=== PATIENT | female | born 1990 | race Asian ===

== ENCOUNTER → 2016-07-11 | Outpatient (CLI) | payer OTHER ==
--- NOTE | 2016-07-11 16:48 | DX ---
Right Foot, 3 Views, at 3:50 p.m. Clinical History: 26-year-old female who fell down 4 stairs today, and complains of pain along the do rsal right 4th and 5th metatarsal area. ICD-10 Diagnostic Code: M79.671. Comparison Study: None. Findings: Bone mineralization is preserved. An ankle bracelet is present. On the lateral view, there is an equivocal avulsion fragment over the dorsal tarsometatarsal anatomy. There is no Lisfranc joint malalignment. The remainder of the foot is unremarkable. Impression: Equivocal avulsion injury over the dorsal midfoot.
== END ==
LOC: BRMIMAGING 15:45
PROVIDERS: ATTEND Physician Assistant
DX: M79.671 Pain in right foot (principal)
CPT/HCPCS: 73630-PO

== ENCOUNTER 2017-03-08 12:11 | Day surgery (SDC) | payer OTHER ==
[2017-03-08] MEDS ORDERED: LORazepam 2 MG/ML INJ IVP ONE (12:38)
[2017-03-08] MEDS ORDERED: GLUCAGON,HUMAN RECOMBINANT 1 MG VIAL IVP ONE ×2 (12:39→12:46)
[2017-03-08] MEDS ORDERED: GLUCAGON,HUMAN RECOMBINANT 1 MG VIAL ONE (12:44)
--- NOTE | 2017-03-08 13:36 | EDPHY ---
General Narrative: CHIEF COMPLAINT: Choking, food stuck in throat HISTORY OF PRESENT ILLNESS: Patient complains of choking on cantaloupe 1 hour prior to arrival. She was eating cantaloupe a workup when she felt a small piece got lodged in the esophagus. She coughed thought that it moved on. She ate a 2nd piece and felt the lodge in what she thinks is her esophagus. She became very anxious about this. She reports drooling difficulty breathing. She had some pain in the neck and upper chest from this. No abdominal pain. No lightheadedness, dizziness or syncope. Her coworkers with her and described her as talking anxious scared. She arrives by EMS with IV in place but no intervention otherwise. No previous history of esophageal stricture, achalasia or other esophageal abnormality. No other associated complaints or modifying factors. REVIEW OF SYSTEMS: Ten systems reviewed and are negative unless otherwise noted in the HPI PAST MEDICAL HISTORY: None PAST SURGICAL HISTORY: None SOCIAL HISTORY: Nonsmoker. Lives here locally. FAMILY HISTORY: Noncontributory EXAMINATION General Appearance: Alert, no distress, anxious Head: normocephalic, atraumatic Eyes: Pupils equal and round, no conjunctival pallor or injection ENT, Mouth: Mucous membranes moist, mild drooling. No stridor. Neck: Normal inspection, supple, non-tender Respiratory: Lungs are clear to auscultation. No retractions or distress. Cardiovascular: Regular rate and rhythm. No murmur Gastrointestinal: Abdomen is soft and nontender Back: non-tender, no bony abnormalities Neurological: GCS 15 A&O, nonfocal, normal gait Skin: Warm and dry, no rash Extremities: Nontender, no pedal edema Psychiatric: Mood and affect normal DIFFERENTIAL DIAGNOSES: Including but not limited to Esophageal foreign body, tracheal foreign body, aspiration, esophageal stricture , Schatzki ring, achalasia MDM: 12:30 p.m. Likely esophageal foreign body containing cantaloupe. She does have examination consistent with this but no stridor. Her airway is widely patent and without difficulty. She is not hypoxic or in any acute distress. We are administering Ativan and glucagon. I will consult GI for assistance. 1:10 p.m. Case discussed with GI physician Dr. Villarreal. He informed me that he would be happy to see the patient. He is about to start an endoscopy and she will be next on the schedule. 1:20 p.m. I have re-evaluated the patient. She is feeling much better. She is talking more clearly at this time. 1:30 p.m. Patient is currently being taken to endoscopy suite at this time. She remains awake and alert. Her airway is patent. She is not stridorous. She continues to improve. Further discharge instructions per Gastroenterology postprocedure. - Diagnostics Imaging Results: Imaging Impressions Soft Tissue Neck X-Ray 03/08/17 12:38 Impression: No definite radiopaque foreign object identified. Findings discussed with Gage Shrestha 03/08/2017 at 1302 hours. - Objective Vital Signs: Initial Vital Signs Temperature (C) 99.0 F 03/08/17 12:20 Heart Rate 89 03/08/17 12:20 Respiratory Rate 20 03/08/17 12:20 Blood Pressure 122/80 H 03/08/17 12:20 O2 Sat (%) 99 03/08/17 12:20 O2 Delivery Mode Simple Mask O2 (L/minute) 6 Allergies/Adverse Reactions: No Known Allergies Allergy (Unverified 03/08/17 12:48) Medications Given: Discontinued Medications Glucagon (Glucagen) 1 mg IVP EDNOW ONE Stop: 03/08/17 12:47 Last Admin: 03/08/17 12:48 Dose: 1 mg Glucagon (Glucagen) 1 mg IVP EDNOW ONE Stop: 03/08/17 12:40 Last Admin: 03/08/17 13:13 Dose: Not Given Lorazepam (Ativan Injection) 0.5 mg IVP EDNOW ONE Stop: 03/08/17 12:39 Last Admin: 03/08/17 12:40 Dose: 0.5 mg Departure - Departure Disposition: Home, Routine, Self-Care Clinical Impression: Esophageal foreign body Qualifiers: Encounter type: initial encounter Qualified Code(s): T18.108A - Unspecified foreign body in esophagus causing other injury, initial encounter Condition: Good
[2017-03-08] MEDS ORDERED: PROPOFOL/EMULSION 500 MG/50 ML BOTTLE IV ONE (14:02)
--- NOTE | 2017-03-08 14:06 | PDANEPAE ---
ANE History of Present Illness here for EGD ANE Past Medical History - Cardiovascular History Hx Hypertension: No Hx Arrhythmias: No Hx Chest Pain: No Hx Coronary Artery / Peripheral Vascular Disease: No Hx CHF / Valvular Disease: No Hx Palpitations: No - Pulmonary History Hx COPD: No Hx Asthma/Reactive Airway Disease: No Hx Recent Upper Respiratory Infection: No Hx Oxygen in Use at Home: No Hx Sleep Apnea: No - Neurologic History Hx Cerebrovascular Accident: No Hx Seizures: No Hx Dementia: No - Endocrine History Hx Diabetes: No Hypothyroid: No Hyperthyroid: No Obesity: no - Renal History Hx Renal Disorders: No - Liver History Hx Hepatic Disorders: No - Neurological & Psychiatric Hx Hx Neurological and Psychiatric Disorders: No - Cancer History Hx Cancer: No - Congenital Disorder History Hx Congenital Disorders: No ANE Review of Systems Review of systems is: negative Review of Systems: - Exercise capacity Exercise capacity: >=4 METS - Systems Constitutional: Reports: no symptoms EENMT: Reports: no symptoms Cardiac: Reports: no symptoms Respiratory: Reports: no symptoms Gastrointestinal: Reports: other Genitourinary: Reports: no symptoms Muscolosketal: Reports: no symptoms Skin: Reports: no symptoms Neurological: Reports: no symptoms ANE Patient History - Allergies Allergies/Adverse Reactions: No Known Allergies Allergy (Unverified 03/08/17 12:48) - Home Medications Home medications: home medication list seen and reviewed - Anes Hx Anes Hx: no prior problems - Smoking Hx Smoking Status: Never smoked ANE Labs/Vital Signs - Vital Signs Blood Pressure: 122/80 Heart Rate: 89 Respiratory Rate: 20 O2 Sat (%): 99 ANE Physical Exam - Airway Neck exam: FROM Mallampati Score: Class 1 - Pulmonary Pulmonary: no respiratory distress - Cardiovascular Cardiovascular: regular rate and rhythym - ASA Status ASA Status: I ANE Anesthesia Plan Anesthesia Plan: general endotracheal anesthesia
[2017-03-08] MEDS ORDERED: DEXAMETHASONE 4 MG/ML VIAL IVP PRN (14:18)
[2017-03-08] MEDS ORDERED: NALOXONE HCL 0.4 MG/ML INJ IVP PRN (14:18)
[2017-03-08] MEDS ORDERED: ALBUTEROL 3 ML DEYVIAL IH PRN (14:18)
[2017-03-08] MEDS ORDERED: ONDANSETRON 4 MG/2 ML VIAL IVP PRN (14:18)
[2017-03-08] MEDS ORDERED: fentaNYL 100 MCG/2 ML INJ IVP PRN (14:18)
[2017-03-08] MEDS ORDERED: PROMETHAZINE HCL 25 MG/ML INJ IVP PRN (14:18)
--- NOTE | 2017-03-08 14:30 | POSTANESTH ---
Post Anesthetic Evaluation Cardiovascular Status: Normal, Stable Respiratory Status: Normal, Stable Level of Consciousness/Mental Status: Mildly Sleepy, Arousable Pain Control: Adequate, Prn Tx Ordered Nausea/Vomiting Control: Adequate, Prn Tx Ordered Complications Possibly Related to Anesthesia: None Noted
[2017-03-08 14:37] VITALS: PULSE 93; TEMP 99
[2017-03-08 15:02] VITALS: RESP 19
--- NOTE | 2017-03-08 15:22 | GPN ---
[f rep st] PROCEDURE NOTE PROCEDURE PERFORMED: Gastroscopy with dilation. INDICATIONS: The patient is a 26-year-old female with longstanding history of dysphagia mostly to so lids but occasionally liquids who presents to the emergency room with active obstruction. She is not able to manage her saliva at presentation. She states that this happens fairly frequently and somet imes requires food to be vomited back up. She also notices occasionally liquids on their own feel st uck. She denies any heartburn symptoms. Is on no medications. Endoscopy is being performed to eval uate and treat. PROCEDURE: After proper consent was obtained, the patient was placed in the left lateral decubitus p osition, received IV general anesthesia. Video gastroscope was introduced through the mouth and into the esophagus. The esophagus was free of any active impaction. No obvious stricture was seen. Stomach was entered and a bolus of food was noted consistent with the cantaloupe she had recently eat en and felt that had been impacted. Otherwise, the stomach appeared normal. Duodenum appeared normal. A Savary wire was placed and a 60-Greek Savary dilator was placed down the esophagus and removed. The gastroscope was replaced and no dilation effect was noted. At this point, instrument was removed. Patient tolerated the procedure well, was returned to the rec overy room in stable condition. IMPRESSION: Recurrent dysphagia, this is mostly solids, but occasionally liquids with no stricture n oted. It is possible this patient has a functional issue such as esophageal spasming. RECOMMENDATIONS: If the patient's symptoms persist after this dilation, I will ask her to come in fo r a formal consultation. She may require trial of acid suppressants or a manometry study. /[id number]/MODL
[2017-03-08 15:41] VITALS: BP 105/70; O2SAT 100
--- NOTE | 2017-03-08 18:54 | POSTOPPROG ---
Post Op Note Date of Operation: 03/08/17 Surgeon: Marquis Villarreal Anesthesia: IV Sedation Pre-op Diagnosis: dysphagia Post-op Diagnosis: same Indication: same Procedure: egd/savary dilation Findings: no stricture Inf/Abcess present in the surg proc area at time of surgery?: No
== END 2017-03-08 15:20 | disposition home or self-care (01) ==
LOC: EDUNIT# → FSGY 13:37
PROVIDERS: ATTEND Internal Medicine Gastroenterology
DX: R13.14 Dysphagia, pharyngoesophageal phase (principal)
CPT/HCPCS: 96374; J1610; J2060; J2704